=== PATIENT | female | born 1950 | race Caucasian/White ===

== ENCOUNTER 2017-02-09 12:46 | Inpatient (IN) | payer MEDICARE, OTHER, MEDICAID ==
[2017-02-09] MEDS ORDERED: Sodium Chloride 0.9% 10 ML Syringe FLUSH PRN (13:07)
[2017-02-09] MEDS ORDERED: Aspirin 81 MG Tab.Chew PO ONE (13:07)
[2017-02-09] MEDS ORDERED: Diltiazem 25 MG/5 ML SDV IVPUSH ONE (13:08)
[2017-02-09] MEDS ORDERED: Diltiazem 125 MG in Sodium Chloride 0.9% 100 ML IV SCH (13:15)
--- NOTE | 2017-02-09 13:53 | EDM.PDOC ---
ED HPI GENERAL MEDICAL PROBLEM - General Chief Complaint: Chest Pain Stated Complaint: CARDIAC ISSUES Time Seen by Provider: 02/09/17 13:06 Source of Information: Reports: Patient History Limitations: Reports: No Limitations - History of Present Illness INITIAL COMMENTS - FREE TEXT/NARRATIVE: The patient presents with palpitations. She said this started today. 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 She did not feel good last night. She felt sweaty. She went home and ate and went to sleep. She got up and felt like her heart his racing and she was nauseated. She also has some chest pressure. She has no shortness of breath. She is feeling lightheaded. She has no history of heart problems, HTN, diabetes or hypercholesterolemia. This has never happened before. She does smoke. Onset: Gradual Duration: Hour(s): Location: Reports: Chest Quality: Reports: Pressure Severity: Mild Improves with: Reports: None Worsens with: Reports: None Associated Symptoms: Reports: Chest Pain, Nausea/Vomiting. Denies: Fever/Chills , Shortness of Breath Treatments BLASTING GANG [employer]ER: Reports: Other (see below) Other Treatments BLASTING GANG MINER: none Chest Pain Score (Numeric/FACES): 10 - Related Data Allergies Allergy/AdvReac Type Severity Reaction Status Date / Time No Known Allergies Allergy Verified 02/09/17 12:58 Home Meds: Home Meds . [No Known Home Meds] 02/09/17 [History] Past Medical History Cardiovascular History: Reports: Hypertension Social & Family History - Family History Family Medical History: Noncontributory - Tobacco Use Smoking Status *Q: Current Every Day Smoker Years of Tobacco use: 32 Packs/Tins Daily: 0.5 ED ROS GENERAL - Review of Systems Review Of Systems: See Below Constitutional: Reports: No Symptoms HEENT: Reports: No Symptoms Respiratory: Reports: No Symptoms Cardiovascular: Reports: Chest Pain, Lightheadedness, Palpitations Endocrine: Reports: No Symptoms GI/Abdominal: Reports: Nausea. Denies: Abdominal Pain, Vomiting : Reports: No Symptoms Musculoskeletal: Reports: No Symptoms Skin: Reports: No Symptoms Neurological: Reports: No Symptoms Psychiatric: Reports: No Symptoms ED EXAM, GENERAL - Physical Exam Exam: See Below Exam Limited By: No Limitations General Appearance: Alert, No Apparent Distress Ears: Normal External Exam Nose: Normal Inspection Head: Atraumatic, Normocephalic Neck: Normal Inspection Respiratory/Chest: No Respiratory Distress, Lungs Clear, Normal Breath Sounds Cardiovascular: No Edema, No Murmur, Tachycardia, Irregularly Irregular GI/Abdominal: Soft, Non-Tender, No Organomegaly, No Mass Extremities: Normal Inspection EKG INTERPRETATION EKG Date: 02/09/17 Time: 12:54 Rhythm: A-Fib Rate (Beats/Min): 125 [place]: Normal P-Wave: Absent QRS: Normal ST-T: Normal QT: Normal Course - Vital Signs Last Recorded V/S: Last Vital Signs Temp 96.6 F 02/09/17 12:57 Pulse 120 H 02/09/17 14:24 Resp 21 H 02/09/17 14:24 BP 102/83 02/09/17 14:24 Pulse Ox 94 L 02/09/17 14:24 - Orders/Labs/Meds Orders: Active Orders 24 hr Category Date Time Status Cardiac Monitoring [RC] . DIRECTED Care 02/09/17 13:07 Active EKG Documentation Completion [RC] STAT Care 02/09/17 13:07 Active Oxygen Therapy [RC] PRN Care 02/09/17 13:07 Active Peripheral IV Care [RC] . DIRECTED Care 02/09/17 13:08 Active Chest 1V Frontal [CR] Stat Exams 02/09/17 13:08 Taken Diltiazem 125 mg Med 02/09/17 13:15 Active Sodium Chloride 0.9% [Normal Saline] 100 ml IV TITRATE Sodium Chloride 0.9% [Saline Flush] Med 02/09/17 13:07 Active 10 ml FLUSH ASDIRECTED PRN Peripheral IV Insertion Adult [OM.PC] Stat Oth 02/09/17 13:07 Ordered Medication Orders Diltiazem HCl 125 mg/ Sodium (Chloride) 125 mls @ 10 mls/hr IV TITRATE GILDA; 10 MG/HR PRN Reason: Protocol Last Titration: 02/09/17 14:27 Dose: 5 mg/hr, 5 mls/hr Titration: 02/09/17 13:49 Dose: 0 mg/hr, 0 mls/hr Admin: 02/09/17 13:22 Dose: 10 mg/hr, 10 mls/hr Sodium Chloride (Saline Flush) 10 ml FLUSH ASDIRECTED PRN PRN Reason: Keep Vein Open Last Admin: 02/09/17 13:15 Dose: 10 ml Labs: Laboratory Tests 02/09/17 02/09/17 Range/Units 13:00 13:00 WBC 9.72 (3.98-10.04) K/mm3 RBC 5.19 (3.98-5.22) M/mm3 Hgb 15.7 (11.2-15.7) gm/L Hct 47.0 H (34.1-44.9) % MCV 90.6 (79.4-94.8) fl MCH 30.3 (25.6-32.2) pg MCHC 33.4 (32.2-35.5) g/dl RDW Std Deviation 43.0 (36.4-46.3) fL Plt Count 309 (182-369) K/mm3 MPV 10.1 (9.4-12.3) fl Neut % (Auto) 54.1 (34.0-71.1) % Lymph % (Auto) 33.7 (19.3-51.7) % [place] % (Auto) 9.0 (4.7-12.5) % Eos % (Auto) 2.4 (0.7-5.8) Baso % (Auto) 0.6 (0.1-1.2) % Neut # (Auto) 5.26 (1.56-6.13) K/mm3 Lymph # (Auto) 3.28 (1.18-3.74) K/mm3 [place] # (Auto) 0.87 H (0.24-0.36) K/mm3 Eos # (Auto) 0.23 (0.04-0.36) K/mm3 Baso # (Auto) 0.06 (0.01-0.08) K/mm3 Manual Slide Review Normal smear Sodium 140 (136-145) mEq/L Potassium 3.6 (3.5-5.1) mEq/L Chloride 103 (98-107) mEq/L Carbon Dioxide 27 (21-32) mEq/L Anion Gap 13.6 (5-15) BUN 15 (7-18) mg/dL Creatinine 1.0 (0.55-1.02) mg/dL Est Cr Clr Drug Dosing 46.50 mL/min Estimated GFR (MDRD) 55 (>60) mL/min BUN/Creatinine Ratio 15.0 (14-18) Glucose 152 H (80-115) mg/dL Calcium 9.4 (8.5-10.1) mg/dL Total Bilirubin 0.6 (0.2-1.0) mg/dL AST 25 (15-37) U/L ALT 28 (14-59) U/L Alkaline Phosphatase 99 (46-116) U/L Troponin I < 0.017 (0.00-0.056) ng/mL Total Protein 7.8 (6.4-8.2) g/dl Albumin 3.9 (3.4-5.0) g/dl Globulin 3.9 gm/dL Albumin/Globulin Ratio 1.0 (1-2) TSH 3rd Generation 2.050 (0.358-3.74) uIU/mL Meds: Medications Generic Name Dose Route Start Last Admin Trade Name Freq PRN Reason Stop Dose Admin Diltiazem HCl 125 mg/ Sodium 125 mls @ 10 mls/hr 02/09/17 13:15 02/09/17 14: 27 Chloride IV 5 mg/hr TITRATE GILDA 5 mls/hr Protocol Titration 10 MG/HR Sodium Chloride 10 ml 02/09/17 13:07 02/09/17 13:15 Saline Flush FLUSH 10 ml ASDIRECTED PRN Administration Keep Vein Open Discontinued Medications Generic Name Dose Route Start Last Admin Trade Name Freq PRN Reason Stop Dose Admin Aspirin 324 mg 02/09/17 13:07 02/09/17 13:14 Aspirin PO 02/09/17 13:08 324 mg ONETIME ONE Administration Diltiazem HCl 10 mg 02/09/17 13:08 02/09/17 13:14 Diltiazem IVPUSH 02/09/17 13:09 10 mg ONETIME ONE Administration - Re-Assessments/Exams Free Text/Narrative Re-Assessment/Exam: 02/09/17 14:05 I ordered an IV saline lock, EKG, labs, CXR, cardizem bolus of 10mg IV and a drip at 10mg/hr. 02/09/17 14:30 Her CBC and CMP look good. Her troponin is negative. Her TSH is normal. Her EKG shows a-fib with no acute changes. The cardizem did slow her down but her BP did go down to the 90s systolic. My nurse stopped the drip for awhile and her BP increased. I then had her start it at 5mg/hr. I called Dr Donald and she agreed to the admission. Departure - Departure Time of Disposition: 14:35 Disposition: Admitted As Inpatient 64 Condition: Good Clinical Impression: Atrial fibrillation with RVR Forms: ED Department Discharge - My Orders Last 24 Hours: My Active Orders 02/09/17 13:07 Cardiac Monitoring [RC] . DIRECTED EKG Documentation Completion [RC] STAT Oxygen Therapy [RC] PRN Sodium Chloride 0.9% [Saline Flush] 10 ml FLUSH ASDIRECTED PRN Peripheral IV Insertion Adult [OM.PC] Stat 02/09/17 13:08 Peripheral IV Care [RC] . DIRECTED Chest 1V Frontal [CR] Stat 02/09/17 13:15 Diltiazem 125 mg Sodium Chloride 0.9% [Normal Saline] 100 ml IV TITRATE - Assessment/Plan Last 24 Hours: My Active Orders 02/09/17 13:07 Cardiac Monitoring [RC] . DIRECTED EKG Documentation Completion [RC] STAT Oxygen Therapy [RC] PRN Sodium Chloride 0.9% [Saline Flush] 10 ml FLUSH ASDIRECTED PRN Peripheral IV Insertion Adult [OM.PC] Stat 02/09/17 13:08 Peripheral IV Care [RC] . DIRECTED Chest 1V Frontal [CR] Stat 02/09/17 13:15 Diltiazem 125 mg Sodium Chloride 0.9% [Normal Saline] 100 ml IV TITRATE
--- NOTE | 2017-02-09 15:22 | PCM.HP ---
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 This was associated with CP, SOB, nausea without vomiting. She has been started on a Cardizem drip; first Tn drawn two hours after her CP is negative. She has seen remotely Mary Ellen Morrison. TSH is wnl, but glucose is elevated, will check HgbA1C. Onset of Symptoms: Reports: Sudden Symptom Onset Date: 02/09/17 Duration of Symptoms: Reports: Hour(s):, Getting Worse Location: Reports: Chest Quality: Reports: Pressure Improves with: Reports: Medication Worsens with: Reports: None Associated Symptoms: Reports: Chest Pain, Diaphoresis, Nausea/Vomiting, Shortness of Breath Chest Pain Score (Numeric/FACES): 10 - Related Data Allergies/Adverse Reactions: Allergies Allergy/AdvReac Type Severity Reaction Status Date / Time No Known Allergies Allergy Verified 02/09/17 12:58 Home Medications: Home Meds . [No Known Home Meds] 02/09/17 [History] Past Medical History Cardiovascular History: Reports: Hypertension Social & Family History - Family History Family Medical History: Noncontributory - Tobacco Use Smoking Status *Q: Current Every Day Smoker Years of Tobacco use: 32 Packs/Tins Daily: 0.5 H&P Review of Systems - Review of Systems: Review Of Systems: See Below General: Reports: Weakness HEENT: Reports: No Symptoms Pulmonary: Reports: Shortness of Breath Cardiovascular: Reports: Chest Pain, Palpitations, Lightheadedness Gastrointestinal: Reports: No Symptoms, Nausea Genitourinary: Reports: No Symptoms Musculoskeletal: Reports: No Symptoms Skin: Reports: No Symptoms Psychiatric: Reports: No Symptoms Neurological: Reports: No Symptoms Hematologic/Lymphatic: Reports: No Symptoms Immunologic: Reports: No Symptoms Exam - Exam Exam: See Below - Vital Signs Vital Signs: Last Vital Signs Temp 35.9 C 02/09/17 12:57 Pulse 120 H 02/09/17 14:24 Resp 21 H 02/09/17 14:24 BP 102/83 02/09/17 14:24 Pulse Ox 94 L 02/09/17 14:24 Weight: 88.451 kg - Exam Quality Assessment: Supplemental Oxygen General: Alert, Oriented, Cooperative HEENT: Conjunctiva Clear, EOMI, Nares Patent, Normal Nasal Septum, Pupils Equal , Pupils Reactive Neck: Supple, Trachea Midline Lungs: Normal Respiratory Effort Cardiovascular: Irregular Rhythm, Tachycardia Abdomen: Normal Bowel Sounds, Soft (Female) Exam: Deferred Back Exam: Normal Inspection Extremities: Normal Inspection Skin: Warm Neurological: Cranial Nerves Intact Neuro Extensive - Mental Status: Alert, Oriented x3, Normal Mood/Affect, Normal Cognition, Memory Intact Neuro Extensive - Motor, Sensory, Reflexes: CN II-XII Intact Psychiatric: Alert, Normal Affect, Normal Mood - Patient Data Result Diagrams: 02/09/17 13:00 02/09/17 13:00 *Q Meaningful Use (ADM) - VTE *Q VTE Criteria *Q: - Stroke *Q Stroke Criteria *Q: - AMI *Q AMI Criteria *Q: - Problem List (1) Atrial fibrillation with RVR SNOMED Code(s): 017870525973742 ICD Code: I48.91 - UNSPECIFIED ATRIAL FIBRILLATION Status: Acute Current Visit: Yes Problem List Initiated/Reviewed/Updated: Yes Orders Last 24hrs: Active Orders 24 hr Category Date Time Status Admission Status [Patient Status] [ADT] Routine ADT 02/09/17 15:04 Active Medication Orders Diltiazem HCl 125 mg/ Sodium (Chloride) 125 mls @ 10 mls/hr IV TITRATE GILDA; 10 MG/HR PRN Reason: Protocol Last Titration: 02/09/17 15:01 Dose: 10 mg/hr, 10 mls/hr Titration: 02/09/17 14:27 Dose: 5 mg/hr, 5 mls/hr Titration: 02/09/17 13:49 Dose: 0 mg/hr, 0 mls/hr Admin: 02/09/17 13:22 Dose: 10 mg/hr, 10 mls/hr Sodium Chloride (Saline Flush) 10 ml FLUSH ASDIRECTED PRN PRN Reason: Keep Vein Open Last Admin: 02/09/17 13:15 Dose: 10 ml Assessment/Plan Comment:: Impression: A Fib with RVR, CHADVASC=2, CVA risk 2.2% Query HTN Query HLD Elevated BS Plan: Lovenox BB Cardizem gtt Daily Labs; trend Tn/ECGs; HgB A1C 2D echo SW/PT/OT
[2017-02-09] MEDS ORDERED: Temazepam 7.5 MG Cap PO PRN (15:31)
[2017-02-09] MEDS ORDERED: Acetaminophen Soln 650 MG/20.3 ML UD Cup PO PRN (15:31)
[2017-02-09] MEDS: Metoprolol Tartrate 25 MG Tab PO SCH ×2 (17:37→21:14)
[2017-02-09] MEDS ORDERED: Nitroglycerin 0.4 MG Tab.SL SL PRN (20:49)
[2017-02-09] MEDS ORDERED: Simvastatin 10 MG Tab PO SCH (21:00)
[2017-02-09] MEDS: Enoxaparin 100 MG/1 ML Syringe SUBCUT SCH (21:15)
[2017-02-10] MEDS ORDERED: Metoprolol Tartrate 25 MG Tab PO SCH (07:00)
[2017-02-10] MEDS: Enoxaparin 100 MG/1 ML Syringe SUBCUT SCH (08:03)
[2017-02-10] MEDS ORDERED: Losartan 25 MG Tab PO SCH (09:00)
[2017-02-10] MEDS ORDERED: Aspirin 81 MG Tab.EC PO SCH (09:00)
[2017-02-10] MEDS ORDERED: Hydrochlorothiazide 25 MG Tab PO SCH (09:00)
[2017-02-10] MEDS ORDERED: Nicotine 14 MG/24 Hr Patch TRDERM SCH (09:00)
--- NOTE | 2017-02-10 09:16 | PCM.PN ---
- General Info Date of Service: 02/10/17 Admission Dx/Problem (Free Text): Admission Diagnosis/Problem Admission Diagnosis/Problem Atrial fibrillation Subjective Update: Follow Up Functional Status: Reports: pain controlled, tolerating diet, ambulating, urinating. Denies: new symptoms - Patient Data Vitals - most recent: Last Vital Signs Temp 36.2 C 02/10/17 07:59 Pulse 99 02/10/17 07:59 Resp 18 02/10/17 07:59 BP 143/90 H 02/10/17 08:01 Pulse Ox 94 L 02/10/17 07:59 Weight - most recent: 90.265 kg I&O - last 24 hours: Intake & Output 02/09/17 02/10/17 02/10/17 22:59 06:59 14:59 Intake Total 660 240 Output Total 950 Balance 660 -710 Lab Results last 24 hrs: Laboratory Results - last 24 hr 02/09/17 02/10/17 02/10/17 Range/Units 18:10 05:37 05:37 WBC 9.03 (3.98-10.04) K/mm3 RBC 4.90 (3.98-5.22) M/mm3 Hgb 15.0 (11.2-15.7) gm/L Hct 45.6 H (34.1-44.9) % MCV 93.1 (79.4-94.8) fl MCH 30.6 (25.6-32.2) pg MCHC 32.9 (32.2-35.5) g/dl RDW Std Deviation 44.0 (36.4-46.3) fL Plt Count 268 (182-369) K/mm3 MPV 9.9 (9.4-12.3) fl Neut % (Auto) 51.3 (34.0-71.1) % Lymph % (Auto) 36.0 (19.3-51.7) % [place] % (Auto) 8.1 (4.7-12.5) % Eos % (Auto) 3.9 (0.7-5.8) Baso % (Auto) 0.6 (0.1-1.2) % Neut # (Auto) 4.64 (1.56-6.13) K/mm3 Lymph # (Auto) 3.25 (1.18-3.74) K/mm3 [place] # (Auto) 0.73 H (0.24-0.36) K/mm3 Eos # (Auto) 0.35 (0.04-0.36) K/mm3 Baso # (Auto) 0.05 (0.01-0.08) K/mm3 Manual Slide Review Abnormal smear Sodium 142 (136-145) mEq/L Potassium 4.2 (3.5-5.1) mEq/L Chloride 108 H (98-107) mEq/L Carbon Dioxide 28 (21-32) mEq/L Anion Gap 10.2 (5-15) BUN 16 (7-18) mg/dL Creatinine 0.7 (0.55-1.02) mg/dL Est Cr Clr Drug Dosing 66.42 mL/min Estimated GFR (MDRD) > 60 (>60) mL/min BUN/Creatinine Ratio 22.9 H (14-18) Glucose 107 (80-115) mg/dL Calcium 9.0 (8.5-10.1) mg/dL Magnesium 2.1 (1.8-2.4) mg/dl Troponin I 0.088 H* (0.00-0.056) ng/mL Triglycerides 123 (<150) mg/dL Cholesterol 181 (<200) mg/dL LDL Cholesterol Direct 129 H* (<100) mg/dL HDL Cholesterol 41.0 (40-59) mg/dL 02/10/17 Range/Units 05:37 WBC (3.98-10.04) K/mm3 RBC (3.98-5.22) M/mm3 Hgb (11.2-15.7) gm/L Hct (34.1-44.9) % MCV (79.4-94.8) fl MCH (25.6-32.2) pg MCHC (32.2-35.5) g/dl RDW Std Deviation (36.4-46.3) fL Plt Count (182-369) K/mm3 MPV (9.4-12.3) fl Neut % (Auto) (34.0-71.1) % Lymph % (Auto) (19.3-51.7) % [place] % (Auto) (4.7-12.5) % Eos % (Auto) (0.7-5.8) Baso % (Auto) (0.1-1.2) % Neut # (Auto) (1.56-6.13) K/mm3 Lymph # (Auto) (1.18-3.74) K/mm3 [place] # (Auto) (0.24-0.36) K/mm3 Eos # (Auto) (0.04-0.36) K/mm3 Baso # (Auto) (0.01-0.08) K/mm3 Manual Slide Review Sodium (136-145) mEq/L Potassium (3.5-5.1) mEq/L Chloride (98-107) mEq/L Carbon Dioxide (21-32) mEq/L Anion Gap (5-15) BUN (7-18) mg/dL Creatinine (0.55-1.02) mg/dL Est Cr Clr Drug Dosing mL/min Estimated GFR (MDRD) (>60) mL/min BUN/Creatinine Ratio (14-18) Glucose (80-115) mg/dL Calcium (8.5-10.1) mg/dL Magnesium (1.8-2.4) mg/dl Troponin I 0.073 H* (0.00-0.056) ng/mL Triglycerides (<150) mg/dL Cholesterol (<200) mg/dL LDL Cholesterol Direct (<100) mg/dL HDL Cholesterol (40-59) mg/dL Med Orders - Current: Current Medications Acetaminophen (Tylenol) 650 mg PO Q6H PRN PRN Reason: Pain (moderate 4-6) Aspirin (Halfprin) 81 mg PO DAILY GILDA Last Admin: 02/10/17 08:02 Dose: 81 mg Enoxaparin Sodium (Lovenox) 80 mg SUBCUT Q12HR GILDA Last Admin: 02/10/17 08:03 Dose: 80 mg Hydrochlorothiazide (Hydrochlorothiazide) 25 mg PO DAILY GILDA Last Admin: 02/10/17 08:02 Dose: 25 mg Diltiazem HCl 125 mg/ Sodium (Chloride) 125 mls @ 10 mls/hr IV TITRATE GILDA; 10 MG/HR PRN Reason: Protocol Last Titration: 02/09/17 23:45 Dose: 0 mg/hr, 0 mls/hr Losartan Potassium (Cozaar) 12.5 mg PO DAILY GILDA Last Admin: 02/10/17 08:01 Dose: 12.5 mg Metoprolol Tartrate (Lopressor) 25 mg PO Q8H [facility] Last Admin: 02/10/17 07:53 Dose: 25 mg Nicotine (Habitrol) 14 mg TRDERM DAILY [facility] Last Admin: 02/10/17 08:04 Dose: Not Given Simvastatin (Zocor) 10 mg PO BEDTIME GILDA Last Admin: 02/09/17 21:15 Dose: 10 mg Sodium Chloride (Saline Flush) 10 ml FLUSH ASDIRECTED PRN PRN Reason: Keep Vein Open Last Admin: 02/09/17 13:15 Dose: 10 ml Temazepam (Restoril) 7.5 mg PO BEDTIME PRN PRN Reason: Insomnia Last Admin: 02/09/17 21:15 Dose: 7.5 mg Discontinued Medications Aspirin (Aspirin) 324 mg PO ONETIME ONE Stop: 02/09/17 13:08 Last Admin: 02/09/17 13:14 Dose: 324 mg Diltiazem HCl (Diltiazem) 10 mg IVPUSH ONETIME ONE Stop: 02/09/17 13:09 Last Admin: 02/09/17 13:14 Dose: 10 mg Metoprolol Tartrate (Lopressor) 25 mg PO Q12HR [facility] Last Admin: 02/09/17 21:14 Dose: Not Given Nitroglycerin (Nitrostat) 0.4 mg SL Q5M PRN PRN Reason: Chest Pain Stop: 02/09/17 21:00 - Plan Plan:: Impression: A Fib with RVR, CHADVASC=2, CVA risk 2.2% Query HTN Query HLD Elevated BS Plan: Lovenox BB Cardizem gtt Daily Labs; trend Tn/ECGs; HgB A1C 2D echo SW/PT/OT
--- NOTE | 2017-02-10 12:39 | PCM.DCSUM1 ---
Discharge Summary - Hospital Course Brief History: This is a 66-year-old pleasant elderly white female with past medical history of hypertension who presented to emergency department with complaints of heart palpitation and was admitted for medical management of new onset of atrial fibrillation with rvr. - Discharge Data Discharge Date: 02/10/17 Discharge Disposition: Home, Self-Care 01 Condition: Good - Discharge Diagnosis/Problem(s) (1) HTN (hypertension) SNOMED Code(s): 21765910 ICD Code: I10 - ESSENTIAL (PRIMARY) HYPERTENSION Status: Acute Qualifiers: Hypertension type: essential hypertension Qualified Code(s): I10 - Essential (primary) hypertension (2) Atrial fibrillation with RVR SNOMED Code(s): 953371243911677 ICD Code: I48.91 - UNSPECIFIED ATRIAL FIBRILLATION Status: Resolved (3) Dyslipidemia, goal LDL below 100 SNOMED Code(s): 25536300 ICD Code: E78.5 - HYPERLIPIDEMIA, UNSPECIFIED Status: Acute - Patient Summary/Data Operative Procedure(s) Performed: None Complications: None Consults: Consultations 02/09/17 15:47 Consult to Physical Therapy [PT Evaluation and Treatment] [CONS] Routine Consult to Milled Rice Broker [CONS] Routine 02/09/17 15:48 Consult to Occupational Therapy [OT Evaluation and Treatment] [CONS] Routine 02/10/17 13:00 Consult to Dietary [Consult to Electrical Checkout Mechanic] [CONS] Routine Hospital Course: Patient was primarily admitted for medical management of new onset of atrial fibrillation with RVR. She received appropriate medical treatment but immediately converted chemically with cardizem. The etiology of her illness was unclear but she had troponin leak. She had no heart failure and her thyroid panel was normal. Patient carries a [id number] score score of 3 with hypertension as her main risk factor the other is her advanced age and female gender. We discussed plan of anticoagulation initially with her but given that she converted to sinus rhythm, we felt it would no longer be needed. Instead, she agreed to have her low dose Aspirin increased to 162 mg po daily. Patient hospital course was uncomplicated. However she was found to have an abnormal lipid panel but does not require statin treatment at this point. She will be discharged with 2 blood pressure and a rate control medication. She is to check her blood pressure 3 times a day and 3-4 times a week. She is to show the result to her primary care doctor on follow-up appointment for further management. Patient was informed to have a stress test done outpatient and this will be set up by her primary care doctor. She was further advised to call her doctor immediately for any changes or abnormal readings on her blood pressure unit. An attempt was made to reach her PCP unfortunately, I was informed she was out of town. The patient was further advised to follow-up with her primary care in 1 -2 weeks. Patient expressed understanding and in agreement with the plans as discussed above. All questions were answered. - Patient Instructions Diet: Usual Diet as Tolerated Activity: As Tolerated Driving: Do Not Drive Showering/Bathing: November Shower Notify Provider of: Fever, Increased Pain, Nausea and/or Vomiting - Discharge Plan Prescriptions/Med Rec: Aspirin 162 mg PO BRK #30 tab.chew Metoprolol Tartrate [Lopressor] 25 mg PO BID #30 tablet Home Medications: Home Meds Aspirin 162 mg PO BRK #30 tab.chew 02/10/17 [Rx] Hydrochlorothiazide 25 mg PO DAILY #15 tablet 02/10/17 [Rx] Metoprolol Tartrate [Lopressor] 25 mg PO BID #30 tablet 02/10/17 [Rx] Vitamin E (Dl,Tocopheryl Acet) [Vitamin E] 400 unit PO DAILY 02/10/17 [History] Patient Handouts: Smoking Cessation, Tips for Success, [id number], Atrial Fibrillation, [id number] Referrals: Chasity Morrison, ASSOCIATE PROGRAMMER [Primary Care Provider] - - Discharge Summary/Plan Comment DC Time >30 min.: Yes (45 mins) Discharge Summary/Plan Comment: Discharge to Home - General Info Date of Service: 02/10/17 Admission Dx/Problem (Free Text: Admission Diagnosis/Problem Admission Diagnosis/Problem Atrial fibrillation Subjective Update: Follow Up Functional Status: Reports: pain controlled, tolerating diet, ambulating, urinating. Denies: new symptoms - Review of Systems General: Denies: Fever, Weakness, Fatigue, Malaise, Chills HEENT: Reports: no symptoms Pulmonary: Denies: shortness of breath Cardiovascular: Denies: Chest Pain Gastrointestinal: Denies: Abdominal pain, Nausea, Vomiting Genitourinary: Reports: no symptoms Musculoskeletal: Reports: no symptoms Skin: Reports: no symptoms Neurological: Denies: Confusion, Dizziness, Syncope, Difficulty Walking, Weakness, Gait Disturbance Psychiatric: Denies: depression, anxiety, hallucinations - Patient Data Vitals - Most Recent: Last Vital Signs Temp 36.2 C 02/10/17 07:59 Pulse 99 02/10/17 07:59 Resp 18 02/10/17 07:59 BP 143/90 H 02/10/17 08:01 Pulse Ox 94 L 02/10/17 07:59 Weight - Most Recent: 90.265 kg I&O - Last 24 hours: Intake & Output 02/09/17 02/10/17 02/10/17 22:59 06:59 14:59 Intake Total 660 240 300 Output Total 950 Balance 660 -710 300 Lab Results - Last 24 hrs: Laboratory Results - last 24 hr 02/09/17 02/10/17 02/10/17 Range/Units 18:10 05:37 05:37 WBC 9.03 (3.98-10.04) K/mm3 RBC 4.90 (3.98-5.22) M/mm3 Hgb 15.0 (11.2-15.7) gm/L Hct 45.6 H (34.1-44.9) % MCV 93.1 (79.4-94.8) fl MCH 30.6 (25.6-32.2) pg MCHC 32.9 (32.2-35.5) g/dl RDW Std Deviation 44.0 (36.4-46.3) fL Plt Count 268 (182-369) K/mm3 MPV 9.9 (9.4-12.3) fl Neut % (Auto) 51.3 (34.0-71.1) % Lymph % (Auto) 36.0 (19.3-51.7) % Wharton % (Auto) 8.1 (4.7-12.5) % Eos % (Auto) 3.9 (0.7-5.8) Baso % (Auto) 0.6 (0.1-1.2) % Neut # (Auto) 4.64 (1.56-6.13) K/mm3 Lymph # (Auto) 3.25 (1.18-3.74) K/mm3 Wharton # (Auto) 0.73 H (0.24-0.36) K/mm3 Eos # (Auto) 0.35 (0.04-0.36) K/mm3 Baso # (Auto) 0.05 (0.01-0.08) K/mm3 Manual Slide Review Abnormal smear Sodium 142 (136-145) mEq/L Potassium 4.2 (3.5-5.1) mEq/L Chloride 108 H (98-107) mEq/L Carbon Dioxide 28 (21-32) mEq/L Anion Gap 10.2 (5-15) BUN 16 (7-18) mg/dL Creatinine 0.7 (0.55-1.02) mg/dL Est Cr Clr Drug Dosing 66.42 mL/min Estimated GFR (MDRD) > 60 (>60) mL/min BUN/Creatinine Ratio 22.9 H (14-18) Glucose 107 (80-115) mg/dL Calcium 9.0 (8.5-10.1) mg/dL Magnesium 2.1 (1.8-2.4) mg/dl Troponin I 0.088 H* (0.00-0.056) ng/mL Triglycerides 123 (<150) mg/dL Cholesterol 181 (<200) mg/dL LDL Cholesterol Direct 129 H* (<100) mg/dL HDL Cholesterol 41.0 (40-59) mg/dL 02/10/17 Range/Units 05:37 WBC (3.98-10.04) K/mm3 RBC (3.98-5.22) M/mm3 Hgb (11.2-15.7) gm/L Hct (34.1-44.9) % MCV (79.4-94.8) fl MCH (25.6-32.2) pg MCHC (32.2-35.5) g/dl RDW Std Deviation (36.4-46.3) fL Plt Count (182-369) K/mm3 MPV (9.4-12.3) fl Neut % (Auto) (34.0-71.1) % Lymph % (Auto) (19.3-51.7) % Wharton % (Auto) (4.7-12.5) % Eos % (Auto) (0.7-5.8) Baso % (Auto) (0.1-1.2) % Neut # (Auto) (1.56-6.13) K/mm3 Lymph # (Auto) (1.18-3.74) K/mm3 Wharton # (Auto) (0.24-0.36) K/mm3 Eos # (Auto) (0.04-0.36) K/mm3 Baso # (Auto) (0.01-0.08) K/mm3 Manual Slide Review Sodium (136-145) mEq/L Potassium (3.5-5.1) mEq/L Chloride (98-107) mEq/L Carbon Dioxide (21-32) mEq/L Anion Gap (5-15) BUN (7-18) mg/dL Creatinine (0.55-1.02) mg/dL Est Cr Clr Drug Dosing mL/min Estimated GFR (MDRD) (>60) mL/min BUN/Creatinine Ratio (14-18) Glucose (80-115) mg/dL Calcium (8.5-10.1) mg/dL Magnesium (1.8-2.4) mg/dl Troponin I 0.073 H* (0.00-0.056) ng/mL Triglycerides (<150) mg/dL Cholesterol (<200) mg/dL LDL Cholesterol Direct (<100) mg/dL HDL Cholesterol (40-59) mg/dL Med Orders - Current: Current Medications Acetaminophen (Tylenol) 650 mg PO Q6H PRN PRN Reason: Pain (moderate 4-6) Aspirin (Halfprin) 81 mg PO DAILY [facility] Last Admin: 02/10/17 08:02 Dose: 81 mg Enoxaparin Sodium (Lovenox) 80 mg SUBCUT Q12HR [facility] Last Admin: 02/10/17 08:03 Dose: 80 mg Hydrochlorothiazide (Hydrochlorothiazide) 25 mg PO DAILY [facility] Last Admin: 02/10/17 08:02 Dose: 25 mg Diltiazem HCl 125 mg/ Sodium (Chloride) 125 mls @ 10 mls/hr IV TITRATE GILDA; 10 MG/HR PRN Reason: Protocol Last Titration: 02/09/17 23:45 Dose: 0 mg/hr, 0 mls/hr Losartan Potassium (Cozaar) 12.5 mg PO DAILY [facility] Last Admin: 02/10/17 08:01 Dose: 12.5 mg Metoprolol Tartrate (Lopressor) 25 mg PO Q8H GILDA Last Admin: 02/10/17 07:53 Dose: 25 mg Simvastatin (Zocor) 10 mg PO BEDTIME GILDA Last Admin: 02/09/17 21:15 Dose: 10 mg Sodium Chloride (Saline Flush) 10 ml FLUSH ASDIRECTED PRN PRN Reason: Keep Vein Open Last Admin: 02/09/17 13:15 Dose: 10 ml Temazepam (Restoril) 7.5 mg PO BEDTIME PRN PRN Reason: Insomnia Last Admin: 02/09/17 21:15 Dose: 7.5 mg Discontinued Medications Aspirin (Aspirin) 324 mg PO ONETIME ONE Stop: 02/09/17 13:08 Last Admin: 02/09/17 13:14 Dose: 324 mg Diltiazem HCl (Diltiazem) 10 mg IVPUSH ONETIME ONE Stop: 02/09/17 13:09 Last Admin: 02/09/17 13:14 Dose: 10 mg Metoprolol Tartrate (Lopressor) 25 mg PO Q12HR [facility] Last Admin: 02/09/17 21:14 Dose: Not Given Nicotine (Habitrol) 14 mg TRDERM DAILY [facility] Last Admin: 02/10/17 08:04 Dose: Not Given Nitroglycerin (Nitrostat) 0.4 mg SL Q5M PRN PRN Reason: Chest Pain Stop: 02/09/17 21:00 - Exam General: Reports: alert, oriented, cooperative, no acute distress HEENT: Reports: Pupils equal, Pupils reactive, EOMI, Mucous membr. moist/pink Neck: Reports: supple, trachea midline, no JVD, no thyromegaly Lungs: Reports: Clear to auscultation, Normal respiratory effort Cardiovascular: Reports: Regular Rate, Regular Rhythm Abdomen: Reports: bowel sounds present, soft, no tenderness, no distension (Female) Exam: Deferred Rectal (Female) Exam: Deferred Back Exam: Reports: Normal Inspection, Decreased Range of Motion Extremities: Reports: no edema, normal pulses, no tenderness/swelling, no clubbing, no cyanosis, no calf tenderness Skin: Reports: warm, dry, intact Neurological: Reports: no new focal deficit Psy/Mental Status: Reports: alert, normal affect, normal mood *Q Meaningful Use (DIS) - VTE *Q VTE Criteria *Q: - Stroke *Q Stroke Criteria *Q: - AMI *Q AMI Criteria *Q:
[2017-02-10 12:41] VITALS: BP 104/77
--- NOTE | 2017-02-12 15:05 | CR ---
Chest: Portable view of the chest was obtained. Comparison: No previous study. Heart size is normal. Tortuous thoracic aorta is seen. Lungs are clear with no acute infiltrates. Impression: 1. Nothing acute is identified on frontal chest x-ray. Diagnostic code #1
== END 2017-02-10 14:45 | disposition home or self-care (01) | DRG 310 ==
LOC: JD.ED 12:46 → UNDOADMIN 14:45 → JD.ICU 14:45
PROVIDERS: ADMIT Internal Medicine Cardiovascular Disease; ATTEND Internal Medicine Cardiovascular Disease
DX: I48.91 Unspecified atrial fibrillation (principal); I48.1 Persistent atrial fibrillation; F17.200 Nicotine dependence, unspecified, uncomplicated
CPT/HCPCS: 36415; 71010; 80053; 84443; 84484; 85025; 93005; A9270; J7030; J7050; 80048; 80061; 83735; 93306; 96365; 96366; 96375; 97161-GP; 97165-GO; 99284; 99285-25; J1650; J3490

== ENCOUNTER 2017-02-20 12:23 | Emergency (ER) | payer MEDICARE, OTHER, MEDICAID ==
[2017-02-20] MEDS ORDERED: Sodium Chloride 0.9% 10 ML Syringe FLUSH PRN (12:54)
[2017-02-20] MEDS ORDERED: Diltiazem 25 MG/5 ML SDV IVPUSH ONE (13:03)
--- NOTE | 2017-02-20 13:34 | CR ---
Chest: Portable view of the chest was obtained. Comparison: Previous chest x-ray of 02/09/17. Heart size appears within normal limits for portable technique. Tortuous thoracic aorta is seen. Lungs are clear with no acute infiltrates. Bony structures are grossly intact. Impression: 1. Incidental findings. Nothing acute is seen. No significant change identified from prior chest x-ray. Diagnostic code #2
--- NOTE | 2017-02-20 14:39 | EDM.PDOC ---
ED HPI GENERAL MEDICAL PROBLEM - General Chief Complaint: Chest Pain Stated Complaint: FAST HEART RATE Time Seen by Provider: 02/20/17 12:50 Source of Information: Reports: Patient, RN Notes Reviewed - History of Present Illness INITIAL COMMENTS - FREE TEXT/NARRATIVE: 66-year-old female comes in with palpitations and feeling of slight "heartburn" type discomfort. This all started about 2 or 3 hours ago. 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 She was admitted to our ED ED and hospital about 10 days ago with acute onset atrial fib. It is my understanding that she converted while here in the hospital. Was discharged on metoprolol 25 mg twice a day. She had been doing well and feeling well up until a few hours ago. He does feel very mild lower anterior chest heaviness and somewhat of a heartburn type discomfort. She is not short of breath. She is not overly weak or dizzy. There is no radiation of discomfort. She is not diabetic. She does not smoke Left Chest Pain Score (Numeric/FACES): 7 - Related Data Allergies Allergy/AdvReac Type Severity Reaction Status Date / Time No Known Allergies Allergy Verified 02/09/17 12:58 Home Meds: Home Meds Aspirin 162 mg PO BRK #30 tab.chew 02/10/17 [Rx] Hydrochlorothiazide 25 mg PO DAILY #15 tablet 02/10/17 [Rx] Metoprolol Tartrate [Lopressor] 25 mg PO BID #30 tablet 02/10/17 [Rx] Vitamin E (Dl,Tocopheryl Acet) [Vitamin E] 400 unit PO DAILY 02/10/17 [History] Past Medical History HEENT History: Reports: Impaired Vision Cardiovascular History: Reports: Hypertension Respiratory History: Reports: None Gastrointestinal History: Reports: None Genitourinary History: Reports: None 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: Musculoskeletal History: Reports: None Neurological History: Reports: None Endocrine/Metabolic History: Reports: None - Infectious Disease History Infectious Disease History: Reports: Chicken Pox, Measles, Mumps - Past Surgical History HEENT Surgical History: Reports: Adenoidectomy Respiratory Surgical History: Reports: None GI Surgical History: Reports: None Female Surgical History: Reports: Breast Reduction Endocrine Surgical History: Reports: None Neurological Surgical History: Reports: None Musculoskeletal Surgical History: Reports: None Social & Family History - Family History Family Medical History: Noncontributory - Tobacco Use Smoking Status *Q: Current Every Day Smoker Years of Tobacco use: 40 Packs/Tins Daily: 0.5 Used Tobacco, but Quit: No Second Hand Smoke Exposure: No - Caffeine Use Caffeine Use: Reports: Coffee - Recreational Drug Use Recreational Drug Use: No ED ROS GENERAL - Review of Systems Review Of Systems: See Below Constitutional: Denies: Fever, Chills, Diaphoresis HEENT: Reports: No Symptoms. Denies: Sinus Problem, Throat Pain Respiratory: Denies: Shortness of Breath, Wheezing, Pleuritic Chest Pain, Cough Cardiovascular: Reports: Chest Pain (Slight lower anterior chest discomfort) GI/Abdominal: Denies: Abdominal Pain, Nausea, Vomiting Musculoskeletal: Denies: Neck Pain, Shoulder Pain, Arm Pain Skin: Reports: No Symptoms Neurological: Reports: No Symptoms ED EXAM, GENERAL - Physical Exam Exam: See Below General Appearance: Alert, No Apparent Distress Eye Exam: Bilateral Eye: PERRL Throat/Mouth: Normal Inspection, Normal Oropharynx Head: Atraumatic. No: Facial Swelling Neck: Supple, Full Range of Motion, Other Respiratory/Chest: No Respiratory Distress (No JVD), Lungs Clear, Normal Breath Sounds Cardiovascular: Irregularly Irregular GI/Abdominal: Soft, Non-Tender Back Exam: No: CVA Tenderness (L), CVA Tenderness (R) Extremities: Normal Inspection, Normal Range of Motion Neurological: Alert, Oriented, No Motor/Sensory Deficits Skin Exam: Warm, Dry, Normal Color, No Rash EKG INTERPRETATION EKG Date: 02/20/17 Rhythm: A-Fib Dodge: Normal QRS: Other (Q waves leads 3) Course - Vital Signs Last Recorded V/S: Last Vital Signs Temp 97.9 F 02/20/17 12:33 Pulse 95 02/20/17 15:11 Resp 18 02/20/17 14:03 BP 121/69 02/20/17 15:11 Pulse Ox 93 L 02/20/17 13:36 - Orders/Labs/Meds Orders: Active Orders 24 hr Category Date Time Status EKG 12 Lead [EKG Documentation Completion] [RC] STAT Care 02/20/17 12:38 Active Peripheral IV Care [RC] . DIRECTED Care 02/20/17 12:55 Active Peripheral IV Insertion Adult [OM.PC] Stat Oth 02/20/17 12:55 Ordered Labs: Laboratory Tests 02/20/17 02/20/17 02/20/17 Range/Units 12:40 12:40 12:40 WBC 9.67 (3.98-10.04) K/mm3 RBC 4.88 (3.98-5.22) M/mm3 Hgb 14.8 (11.2-15.7) gm/L Hct 43.8 (34.1-44.9) % MCV 89.8 (79.4-94.8) fl MCH 30.3 (25.6-32.2) pg MCHC 33.8 (32.2-35.5) g/dl RDW Std Deviation 41.4 (36.4-46.3) fL Plt Count 290 (182-369) K/mm3 MPV 10.9 (9.4-12.3) fl Neut % (Auto) 50.0 (34.0-71.1) % Lymph % (Auto) 38.6 (19.3-51.7) % Wolfe % (Auto) 7.8 (4.7-12.5) % Eos % (Auto) 3.1 (0.7-5.8) Baso % (Auto) 0.4 (0.1-1.2) % Neut # (Auto) 4.84 (1.56-6.13) K/mm3 Lymph # (Auto) 3.73 (1.18-3.74) K/mm3 Wolfe # (Auto) 0.75 H (0.24-0.36) K/mm3 Eos # (Auto) 0.30 (0.04-0.36) K/mm3 Baso # (Auto) 0.04 (0.01-0.08) K/mm3 PT 10.0 (8.0-13.0) SECONDS INR 0.92 APTT 30 (22-36) SECONDS Sodium 143 (136-145) mEq/L Potassium 3.1 L (3.5-5.1) mEq/L Chloride 106 (98-107) mEq/L Carbon Dioxide 26 (21-32) mEq/L Anion Gap 14.1 (5-15) BUN 19 H (7-18) mg/dL Creatinine 1.0 (0.55-1.02) mg/dL Est Cr Clr Drug Dosing 48.45 mL/min Estimated GFR (MDRD) 55 (>60) mL/min BUN/Creatinine Ratio 19.0 H (14-18) Glucose 133 H (80-115) mg/dL Calcium 9.0 (8.5-10.1) mg/dL Total Bilirubin 0.7 (0.2-1.0) mg/dL AST 23 (15-37) U/L ALT 27 (14-59) U/L Alkaline Phosphatase 84 (46-116) U/L Troponin I < 0.017 (0.00-0.056) ng/mL B-Natriuretic Peptide (0-100) pg/mL Total Protein 7.5 (6.4-8.2) g/dl Albumin 3.8 (3.4-5.0) g/dl Globulin 3.7 gm/dL Albumin/Globulin Ratio 1.0 (1-2) / Range/Units 12:40 WBC (3.98-10.04) K/mm3 RBC (3.98-5.22) M/mm3 Hgb (11.2-15.7) gm/L Hct (34.1-44.9) % MCV (79.4-94.8) fl MCH (25.6-32.2) pg MCHC (32.2-35.5) g/dl RDW Std Deviation (36.4-46.3) fL Plt Count (182-369) K/mm3 MPV (9.4-12.3) fl Neut % (Auto) (34.0-71.1) % Lymph % (Auto) (19.3-51.7) % Wolfe % (Auto) (4.7-12.5) % Eos % (Auto) (0.7-5.8) Baso % (Auto) (0.1-1.2) % Neut # (Auto) (1.56-6.13) K/mm3 Lymph # (Auto) (1.18-3.74) K/mm3 Wolfe # (Auto) (0.24-0.36) K/mm3 Eos # (Auto) (0.04-0.36) K/mm3 Baso # (Auto) (0.01-0.08) K/mm3 PT (8.0-13.0) SECONDS INR APTT (22-36) SECONDS Sodium (136-145) mEq/L Potassium (3.5-5.1) mEq/L Chloride (98-107) mEq/L Carbon Dioxide (21-32) mEq/L Anion Gap (5-15) BUN (7-18) mg/dL Creatinine (0.55-1.02) mg/dL Est Cr Clr Drug Dosing mL/min Estimated GFR (MDRD) (>60) mL/min BUN/Creatinine Ratio (14-18) Glucose (80-115) mg/dL Calcium (8.5-10.1) mg/dL Total Bilirubin (0.2-1.0) mg/dL AST (15-37) U/L ALT (14-59) U/L Alkaline Phosphatase (46-116) U/L Troponin I (0.00-0.056) ng/mL B-Natriuretic Peptide 105 H (0-100) pg/mL Total Protein (6.4-8.2) g/dl Albumin (3.4-5.0) g/dl Globulin gm/dL Albumin/Globulin Ratio (1-2) Meds: Medications Discontinued Medications Generic Name Dose Route Start Last Admin Trade Name Freq PRN Reason Stop Dose Admin Diltiazem HCl 10 mg 02/20/17 13:03 02/20/17 13:34 Diltiazem IVPUSH 02/20/17 13:04 10 mg ONETIME ONE Administration Metoprolol Tartrate 25 mg 02/20/17 14:55 02/20/17 15:11 Lopressor PO 02/20/17 14:56 25 mg ONETIME ONE Administration Sodium Chloride 10 ml 02/20/17 12:54 02/20/17 13:35 Saline Flush FLUSH 10 ml ASDIRECTED PRN Administration Keep Vein Open - Re-Assessments/Exams Free Text/Narrative Re-Assessment/Exam: 02/20/17 17:29 Heart rate did come down into the 80s and 90s after diltiazem 10 mg IV. Labs are all relatively normal including a normal troponin. She is not in failure. She is not having chest discomfort while here in the ED. She is very tired having worked most of the night and not having slept since yesterday morning to early afternoon. I have recommended increasing her metoprolol from 25 mg twice a day to 50 mg twice a day for better rate control. We have also given metoprolol 25 mg orally here in the ED prior to discharge. Discharge instructions as documented Departure - Departure Time of Disposition: 14:56 Disposition: Home, Self-Care 01 Condition: Fair Clinical Impression: Atrial fibrillation with RVR Instructions: Atrial Fibrillation, [id number] Referrals: Chasity Morrison, IT ADMINISTRATIVE ASSISTANT [Primary Care Provider] - Forms: ED Department Discharge Additional Instructions: Rest, increase her metoprolol to 2 tablets or 50 mg twice daily, check your blood pressure and heart rate if possible once or twice a day and keep a record for your medical provider, see Rebecca Morrison tomorrow as planned, return to ED if symptoms worsening in any way. Discuss with Rebecca Morrison at your appointment tomorrow stroke risk and consideration of starting on a more powerful blood thinner type therapy - My Orders Last 24 Hours: My Active Orders 02/20/17 12:38 EKG 12 Lead [EKG Documentation Completion] [RC] STAT 02/20/17 12:55 Peripheral IV Care [RC] . DIRECTED Peripheral IV Insertion Adult [OM.PC] Stat - Assessment/Plan Last 24 Hours: My Active Orders 02/20/17 12:38 EKG 12 Lead [EKG Documentation Completion] [RC] STAT 02/20/17 12:55 Peripheral IV Care [RC] . DIRECTED Peripheral IV Insertion Adult [OM.PC] Stat
[2017-02-20] MEDS ORDERED: Metoprolol Tartrate 25 MG Tab PO ONE (14:55)
[2017-02-20 15:12] VITALS: BP 121/69
== END 2017-02-20 15:21 | disposition home or self-care (01) ==
LOC: JD.ED 12:23
DX: I48.91 Unspecified atrial fibrillation (principal); I10 Essential (primary) hypertension; F17.210 Nicotine dependence, cigarettes, uncomplicated; Z98.890 Other specified postprocedural states; Z79.899 Other long term (current) drug therapy
CPT/HCPCS: 36415; 71010; 80053; 83880; 84484; 85025; 85610; 85730; 93005; 96374; 99285; A9270; J7050; 99284; J3490

== ENCOUNTER 2019-08-20 07:56 | Day surgery (SDC) | payer MEDICARE, MEDICAID ==
[2019-08-20] MEDS: Polymyxin B/Trimethoprim 10 ML Bottle EYELF SCH ×4 (08:32→10:21)
[2019-08-20] MEDS: Brimonidine 0.2% Ophth Soln 5 ML Bottle EYELF SCH ×4 (08:38→10:21)
[2019-08-20] MEDS: Phenylephrine 2.5% Ophth Soln 2 ML Bot EYELF SCH ×6 (08:42→09:58)
[2019-08-20] MEDS: Tropicamide 1% Ophth Soln 15 ML Bottle EYELF SCH ×4 (08:47→09:35)
--- NOTE | 2019-08-20 08:52 | PCM.PREANE ---
Preanesthetic Assessment - Anesthesia/Transfusion/Family Hx Anesthesia History: Prior Anesthesia Reaction Family History of Anesthesia Reaction: No Transfusion History: No Prior Transfusion(s) - Review of Systems General: No Symptoms Pulmonary: Cough (Smoker 1 ppd, chronic cough.) Cardiovascular: No Symptoms, Other (Hypertension, A Fib on xarelto) Gastrointestinal: No Symptoms Neurological: No Symptoms Other: Reports: None - Physical Assessment NPO Status Date: 08/19/19 NPO Status Time: 16:00 Vital Signs: Last Vital Signs Temp 36.5 C 08/20/19 08:10 Pulse 52 L 08/20/19 08:10 Resp 16 08/20/19 08:10 BP 116/55 L 08/20/19 08:10 Pulse Ox 94 L 08/20/19 08:10 Height: 1.65 m Weight: 95.254 kg ASA Class: 2 Mental Status: Alert & Oriented x3 Airway Class: Mallampati = 2 Dentition: Reports: Dentures (Upper and Lower) Thyro-Mental Finger Breadths: 3 Mouth Opening Finger Breadths: 3 ROM/Head Extension: Full Lungs: Clear to Auscultation, Normal Respiratory Effort - Allergies Allergies/Adverse Reactions: Allergies Allergy/AdvReac Type Severity Reaction Status Date / Time No Known Allergies Allergy Verified 08/16/19 10:23 - Anesthesia Plan Beta Maycol: Metoprolol Med Last Dose Date: 08/20/19 Med Last Dose Time: 06:00 - Acknowledgements Anesthesia Type Planned: MAC Pt an Appropriate Candidate for the Planned Anesthesia: Yes Alternatives and Risks of Anesthesia Discussed w Pt/Guardian: Yes Pt/Guardian Understands and Agrees with Anesthesia Plan: Yes PreAnesthesia Questionnaire HEENT History: Reports: Impaired Vision Cardiovascular History: Reports: Hypertension Respiratory History: Reports: None Gastrointestinal History: Reports: None Genitourinary History: Reports: None 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: Musculoskeletal History: Reports: None Neurological History: Reports: None Endocrine/Metabolic History: Reports: None - Infectious Disease History Infectious Disease History: Reports: Chicken Pox, Measles, Mumps - Past Surgical History HEENT Surgical History: Reports: Adenoidectomy Respiratory Surgical History: Reports: None GI Surgical History: Reports: None Female Surgical History: Reports: Breast Reduction Endocrine Surgical History: Reports: None Neurological Surgical History: Reports: None Musculoskeletal Surgical History: Reports: None - HOME MEDS Home Medications: Home Meds Hydrochlorothiazide 25 mg PO DAILY #15 tablet 02/10/17 [Rx] Vitamin E (Dl,Tocopheryl Acet) [Vitamin E] 400 unit PO DAILY 02/10/17 [History] Antiox.mv No.10/Omeg3s/Lut/Yair [I-Caps with Lutein-[place] 3 SFG] 1 tab PO DAILY 08/16/19 [History] Ascorbic Acid [Vitamin C] 1,000 mg PO DAILY 08/16/19 [History] Metoprolol Tartrate [Lopressor] 50 mg PO BID 08/16/19 [History] PEG 400/Hypromellose/Glycerin [Artificial Tears Drops] 1 drop OP DAILY PRN 08/16 [History] Rivaroxaban [Xarelto] 20 mg PO DAILY 08/16/19 [History] - CURRENT (IN HOUSE) MEDS Current Meds: Current Medications Brimonidine Tartrate (Alphagan 0.2% Ophth Soln) 0 ml EYELF ASDIRECTED GILDA Stop: 08/20/19 18:00 Last Admin: 08/20/19 08:38 Dose: 1 drop Cefuroxime Sodium (Zinacef) 0 mg EYELF ASDIRECTED GILDA Stop: 08/20/19 18:00 Lidocaine HCl (Xylocaine-Mpf 1%) 0 ml INJECT ASDIRECTED GILDA Stop: 08/20/19 18:00 Phenylephrine HCl (Jono-Synephrine 2.5% Ophth Soln) 0 ml EYELF ASDIRECTED GILDA Stop: 08/20/19 18:00 Last Admin: 08/20/19 08:42 Dose: 1 drop Pilocarpine HCl (Pilocar 4% Ophth Soln) 0 ml EYELF ASDIRECTED GILDA Stop: 08/20/19 18:00 Polymyxin/Trimethoprim Sulfate (Polytrim Ophth Soln) 0 ml EYELF ASDIRECTED GILDA Stop: 08/20/19 18:00 Last Admin: 08/20/19 08:32 Dose: 1 drop Tetracaine HCl (Tetracaine 0.5% Steri-Unit Michelle) 0 ml EYELF ASDIRECTED GILDA Stop: 08/20/19 18:00 Tropicamide (Mydriacyl 1% Ophth Soln) 0 ml EYELF ASDIRECTED GILDA Stop: 08/20/19 18:00 Last Admin: 08/20/19 08:47 Dose: 1 drop
[2019-08-20] MEDS: Lidocaine 1% PF 2 ML SDV INJECT SCH ×2 (08:57→10:10)
[2019-08-20] MEDS: Tetracaine HCl/PF 0.5% 4 ML Bottle EYELF SCH ×3 (08:57→10:10)
[2019-08-20] MEDS: Pilocarpine 4% Ophth Soln 15 ML Bot EYELF SCH ×2 (08:58→10:21)
[2019-08-20] MEDS: Cefuroxime 10 MG/ML SYRINGE EYELF SCH ×2 (08:58→10:20)
--- NOTE | 2019-08-20 10:22 | PCM48HPAN ---
Post Anesthesia Note - EVALUATION WITHIN 48HRS OF ANESTHETIC Vital Signs in Normal Range: Yes Patient Participated in Evaluation: Yes Respiratory Function Stable: Yes Airway Patent: Yes Cardiovascular Function Stable: Yes Hydration Status Stable: Yes Pain Control Satisfactory: Yes Nausea and Vomiting Control Satisfactory: Yes Mental Status Recovered: Yes Vital Signs: Last Vital Signs Temp 36.5 C 08/20/19 08:10 Pulse 52 L 08/20/19 08:10 Resp 16 08/20/19 08:10 BP 116/55 L 08/20/19 08:10 Pulse Ox 94 L 08/20/19 08:10
[2019-08-20 10:40] VITALS: BP 121/65; PULSE 51
== END 2019-08-20 10:35 | disposition home or self-care (01) ==
LOC: JD.SDS 07:56
PROVIDERS: ATTEND Ophthalmology
DX: H25.813 Combined forms of age-related cataract, bilateral (principal); H35.363 Drusen (degenerative) of macula, bilateral; H35.3131 Nonexudative age-related macular degeneration, bilateral, early dry stage; H02.831 Dermatochalasis of right upper eyelid; H02.834 Dermatochalasis of left upper eyelid; H16.103 Unspecified superficial keratitis, bilateral; H16.223 Keratoconjunctivitis sicca, not specified as Sjogren's, bilateral; I10 Essential (primary) hypertension; I48.91 Unspecified atrial fibrillation; F17.210 Nicotine dependence, cigarettes, uncomplicated; Z79.01 Long term (current) use of anticoagulants; Z79.899 Other long term (current) drug therapy
CPT/HCPCS: 66984; J0697; J2001; C1780

== ENCOUNTER 2022-02-01 17:20 | Emergency (ER) | payer MEDICARE, OTHER ==
[2022-02-01 18:28] VITALS: BP 116/70; PULSE 59
[2022-02-01] MEDS ORDERED: Cefdinir 300 MG Cap PO ONE (21:05)
== END 2022-02-01 21:49 | disposition home or self-care (01) ==
LOC: JD.ED 17:20
DX: R55 Syncope and collapse (principal); I48.91 Unspecified atrial fibrillation; E78.00 Pure hypercholesterolemia, unspecified; I10 Essential (primary) hypertension; Z79.01 Long term (current) use of anticoagulants; Z79.02 Long term (current) use of antithrombotics/antiplatelets
CPT/HCPCS: 36415; 71045; 80053; 81001; 83735; 84484; 85025; 87086; 87088; 87186; 93225; 93226; 99284; A9270

== ENCOUNTER → 2022-08-16 | Day surgery (SDC) | payer MEDICARE, OTHER ==
[2022-08-16] MEDS: Brimonidine 0.2% Ophth Soln 5 ML Bottle EYEBOTH SCH ×2 (13:43→14:25)
[2022-08-16] MEDS: Phenylephrine 2.5% Ophth Soln 2 ML Bot EYEBOTH SCH ×3 (13:46→13:58)
[2022-08-16] MEDS: Tropicamide 1% Ophth Soln 15 ML Bottle EYEBOTH SCH ×3 (13:49→14:02)
== END ==
LOC: JD.SDS 13:41
PROVIDERS: ATTEND Ophthalmology
DX: H26.493 Other secondary cataract, bilateral (principal); H35.3132 Nonexudative age-related macular degeneration, bilateral, intermediate dry stage; H35.363 Drusen (degenerative) of macula, bilateral; H16.103 Unspecified superficial keratitis, bilateral; H16.223 Keratoconjunctivitis sicca, not specified as Sjogren's, bilateral; H02.831 Dermatochalasis of right upper eyelid; H02.834 Dermatochalasis of left upper eyelid; I10 Essential (primary) hypertension; E78.00 Pure hypercholesterolemia, unspecified; F17.210 Nicotine dependence, cigarettes, uncomplicated; Z98.890 Other specified postprocedural states; Z79.899 Other long term (current) drug therapy; Z96.1 Presence of intraocular lens
CPT/HCPCS: A9270-GY; J3490